=== PATIENT | female | born 1980 | race Caucasian/White ===

== ENCOUNTER 2019-12-07 11:44 | Observation (INO) ==
[2019-12-07] MEDS ORDERED: *HR* FentaNYL (PF) 100 MCG/2 ML VIAL EP ONE (11:49)
[2019-12-07] MEDS ORDERED: *HR* FentaNYL (PF) 100 MCG/2 ML VIAL IVP ONE ×2 (11:51→11:58)
[2019-12-07] MEDS ORDERED: Ondansetron 4 MG/2 ML VIAL IVP ONE (11:52)
[2019-12-07 12:32] LABS: Basophils # 0.1 K/mcL (0.0-0.2); Basophils % 0.6 %; Eosinophils # 0.4 K/mcL (0.0-0.6); Eosinophils % 3.2 %; Hemoglobin 14.6 g/dL (11.5-15.4); Immature Granulocytes % 0.4 % (0-4); Lymphocytes # 4.7 K/mcL (0.6-4.6); Lymphocytes % 38.1 %; Mean Corpuscular Hemoglobin 30.4 pg (28.0-33.3); Mean Corpuscular Volume 89.6 fL (83.0-100.0); Monocytes # 0.6 K/mcL (0.0-1.3); Monocytes % 4.8 %; Neutrophils # 6.5 K/mcL (1.6-8.9); Platelet Count 326 K/mcL (140-400); Red Cell Distribution Width 12.4 % (11.5-14.5); Segmented Neutrophils % 52.9 %; White Blood Count 12.3 K/mcL (4.3-11.1)
[2019-12-07 12:42] LABS: Bilirubin,Urine Negative (Negative); Blood,Urine Trace-lysed (Negative); Clarity,Urine Clear (Clear); Color,Urine Yellow (Yellow); Glucose,Urine (UA) Normal (Normal); Ketones,Urine Negative (Negative); Leukocyte Esterase,Urine Moderate (Negative); Nitrite,Urine Negative (Negative); PH,Urine 5.5 pH Units (5.0-8.0); Protein,Urine 30 mg/dL (Neg-Trace); Specific Gravity,Urine >= 1.030 (1.010-1.025); Urobilinogen,Urine Normal (Normal)
[2019-12-07 12:49] LABS: Squamous Epithelial Cell,Urine Many per lpf (None-Few)
[2019-12-07 12:50] LABS: Bacteria,Urine Moderate per hpf (None-Few); RBC,Urine 0-3 per hpf (0-3)
[2019-12-07 12:51] LABS: Trichomonas,Urine Present (None Seen)
[2019-12-07 12:52] LABS: BUN/Creatinine Ratio 22 (6-26); Blood Urea Nitrogen 17 mg/dL (6-20); Calcium 9.3 mg/dL (8.6-10.3); Carbon Dioxide 19 mEq/L (23-29); Chloride 112 mEq/L (98-107); Glucose 112 mg/dL (70-105); Osmolality,Calculated 288 (280-300); Potassium 3.9 mEq/L (3.5-5.1); Sodium 138 mEq/L (136-145); eGFR For African Americans > 60 (> 60); eGFR For Non-African Americans > 60 (> 60)
[2019-12-07 12:53] LABS: Platelet Estimate Normal (Normal); Reactive Lymphocytes Present (Not Present)
[2019-12-07] MEDS ORDERED: *HR* HYDROmorphone (PF) 1 MG/ML SYRINGE IVP ONE (13:05)
[2019-12-07] MEDS ORDERED: KETAMINE IVPB STA (14:07)
[2019-12-07] MEDS ORDERED: SODIUM CHLORIDE 0.9% IVPB STA (14:07)
[2019-12-07] MEDS ORDERED: 0.9 % Sodium Chloride 1,000 ML IVC ONE (14:22)
[2019-12-07] MEDS ORDERED: metroNIDAZOLE 500 MG TABLET PO ONE (15:24)
[2019-12-07] MEDS ORDERED: cefTRIAXone 250 MG VIAL IM ONE (15:24)
[2019-12-07] MEDS ORDERED: Azithromycin 250 MG TABLET PO ONE (15:24)
[2019-12-07] MEDS ORDERED: Ketorolac 15 MG/ML VIAL IVP ONE (15:25)
[2019-12-07] MEDS ORDERED: Naloxone 0.4 MG/ML INJ IVP PRN (16:25)
[2019-12-07] MEDS ORDERED: Ondansetron ODT 4 MG TAB.RAPDIS SL PRN (16:25)
[2019-12-07] MEDS ORDERED: Ringers Solution, Lactated 1,000 ML IVC SCH (17:00)
[2019-12-07] MEDS: *HR* HYDROcodone/Acet 5/325 mg TABLET PO PRN ×2 (17:53→23:50)
[2019-12-07] MEDS ORDERED: Acetaminophen 325 MG TABLET PO PRN (19:49)
[2019-12-07] MEDS: *HR* OxyCODONE Immed Rel 5 MG TABLET PO PRN (20:00)
[2019-12-07] MEDS: Nicotine 14 MG PATCH.TD24 TD SCH (20:00)
[2019-12-08] MEDS: *HR* OxyCODONE Immed Rel 5 MG TABLET PO PRN ×2 (01:59→13:09)
[2019-12-08 03:26] LABS: Basophils % 0.2 %; Eosinophils # 0.1 K/mcL (0.0-0.6); Eosinophils % 0.3 %; Hematocrit 36.1 % (35.3-44.9); Immature Granulocytes % 0.5 % (0-4); Lymphocytes # 2.1 K/mcL (0.6-4.6); Lymphocytes % 12.5 %; Mean Corpuscular HGB Conc 33.8 g/dL (31.6-35.5); Mean Corpuscular Hemoglobin 30.3 pg (28.0-33.3); Mean Corpuscular Volume 89.8 fL (83.0-100.0); Mean Platelet Volume 9.8 fL (9.4-12.4); Monocytes # 1.3 K/mcL (0.0-1.3); Monocytes % 7.5 %; Neutrophils # 13.4 K/mcL (1.6-8.9); Platelet Count 251 K/mcL (140-400); Red Blood Count 4.02 M/mcL (3.82-4.97); Red Cell Distribution Width 12.3 % (11.5-14.5)
[2019-12-08 03:27] LABS: Hemoglobin 12.2 g/dL (11.5-15.4)
[2019-12-08 03:32] LABS: Prothrombin Time 11.6 Seconds (9.4-12.1)
[2019-12-08 03:35] LABS: Activated Partial Thrombo Time 29.7 Seconds (26.0-36.0)
[2019-12-08 03:50] LABS: Alanine Aminotransferase 53 Units/L (7-52); Albumin 3.9 g/dL (3.5-5.7); Albumin/Globulin Ratio 1.7 (1.1-2.2); Alkaline Phosphatase 76 Units/L (34-104); Aspartate Amino Transferase 55 Units/L (13-39); BUN/Creatinine Ratio 17 (6-26); Bilirubin,Total 1.1 mg/dL (0.3-1.0); Blood Urea Nitrogen 12 mg/dL (6-20); Calcium 8.8 mg/dL (8.6-10.3); Carbon Dioxide 20 mEq/L (23-29); Chloride 107 mEq/L (98-107); Globulin 2.3 g/dL (2.4-3.5); Glucose 102 mg/dL (70-105); Magnesium 1.7 mg/dL (1.6-2.6); Osmolality,Calculated 278 (280-300); Potassium 3.8 mEq/L (3.5-5.1); Sodium 134 mEq/L (136-145); Total Protein 6.2 g/dL (6.4-8.9); eGFR For African Americans > 60 (> 60); eGFR For Non-African Americans > 60 (> 60)
[2019-12-08] MEDS: *HR* HYDROcodone/Acet 5/325 mg TABLET PO PRN (05:45)
[2019-12-08] MEDS: Nicotine 14 MG PATCH.TD24 TD SCH (08:55)
[2019-12-08] MEDS ORDERED: Nicotine 14 MG PATCH.TD24 TD SCH (09:00)
[2019-12-08] MEDS ORDERED: cefTRIAXone 1,000 MG in Water for inj. (sterile) 10 ML IVP SCH (09:00)
[2019-12-08] MEDS ORDERED: Dextrose Gel 15 GM/37.5 ML TUBE PO PRN ×4 (12:02→16:06)
[2019-12-08] MEDS ORDERED: D5% in Water 1,000 ML IVC PRN ×2 (12:02→16:06)
[2019-12-08] MEDS ORDERED: *HR* Dextrose 50 % in Water (Syg) 50 ML SYRINGE IVP PRN ×2 (12:02→16:06)
[2019-12-08] MEDS ORDERED: *HR* OxyCODONE Immed Rel 5 MG TABLET PO PRN ×2 (14:13→16:06)
[2019-12-08] MEDS ORDERED: Ondansetron 4 MG/2 ML VIAL IVP ONE (14:13)
[2019-12-08] MEDS ORDERED: *HR* Promethazine 25 MG/ML VIAL IVP PRN (14:13)
[2019-12-08] MEDS ORDERED: *HR* Propofol 200 MG/20 ML VIAL IVP ONE (14:15)
[2019-12-08] MEDS ORDERED: *HR* Midazolam HCl 2 MG/2 ML VIAL ONE (14:15)
[2019-12-08] MEDS ORDERED: *HR* FentaNYL (PF) 100 MCG/2 ML VIAL ONE (14:15)
[2019-12-08] MEDS ORDERED: Lidocaine -MPF 2% 2 ML VIAL ONE (14:16)
[2019-12-08] MEDS ORDERED: Dexamethasone 4 MG/ML VIAL ONE (14:16)
[2019-12-08] MEDS ORDERED: Ondansetron 4 MG/2 ML VIAL ONE (14:16)
[2019-12-08] MEDS ORDERED: *HR* Succinylcholine 200 MG/10 ML VIAL IVP ONE (15:14)
[2019-12-08] MEDS ORDERED: *HR* HYDROcodone/Acet 5/325 mg TABLET PO PRN (16:06)
[2019-12-08] MEDS ORDERED: Acetaminophen 325 MG TABLET PO PRN (16:06)
[2019-12-08] MEDS ORDERED: *HR* Belladonna Alkaloids/Opium 60 MG RECTAL SUPPOSITORY RC PRN (16:06)
[2019-12-08] MEDS ORDERED: Ondansetron ODT 4 MG TAB.RAPDIS SL PRN (16:06)
[2019-12-08] MEDS ORDERED: Naloxone 0.4 MG/ML INJ IVP PRN (16:06)
[2019-12-08 16:29] VITALS: BP 132/85
[2019-12-08] MEDS ORDERED: Insulin LISPRO 300 UNITS/3 ML VIAL SQ SCH ×2 (18:00)
[2019-12-08] MEDS ORDERED: OXcarbazepine 150 MG TABLET PO SCH ×2 (21:00)
[2019-12-09] MEDS ORDERED: cefTRIAXone 1,000 MG in Water for inj. (sterile) 10 ML IVP SCH (09:00)
[2019-12-09] MEDS ORDERED: Nicotine 14 MG PATCH.TD24 TD SCH (09:00)
== END 2019-12-08 17:39 | disposition home or self-care (01) ==
LOC: EMEROOARM 11:44 → 3ANU 11:44 → SUATTDRO 16:28 → MERGE 16:28 → 3ANU 17:00
PROVIDERS: ADMIT Internal Medicine; ATTEND Internal Medicine